=== PATIENT | male | born 1965 | race Caucasian/White ===

== ENCOUNTER 2021-02-08 22:45 | Outpatient (RCR) | payer MEDICARE, MEDICAID, SELFPAY ==
[2021-02-08] MEDS: COVID-19 VACC, MRNA(PFIZER)/PF 30 MCG/0.3 ML SYRINGE IM (15:25)
[2021-03-01] MEDS: COVID-19 VACC, MRNA(PFIZER)/PF 30 MCG/0.3 ML SYRINGE IM (15:00)
== END 2021-02-08 23:59 ==
LOC: IMMUN 22:45
PROVIDERS: PCP Pediatrics; Visit Provider Family Medicine
DX: Z23 Encounter for immunization (principal)
CPT/HCPCS: 0001A; 0002A; 91300